=== PATIENT | male | born 1960 | race Caucasian/White ===

== ENCOUNTER 2021-06-03 16:19 | Emergency (ER) | payer OTHER ==
[2021-06-03] MEDS ORDERED: Sodium Chloride 0.9% 100 ML ONE (16:58)
[2021-06-03] MEDS ORDERED: Cefepime 2 GM VIAL ONE (16:58)
[2021-06-03 17:00] LABS: #Basophils 0.1 thou/uL (0.0-0.2); #Eosinphils 0.2 thou/uL (0.0-0.7); #Lymphocytes 2.3 thou/uL (1.20-3.40); #Monocytes 0.7 thou/uL (0.11-0.59); #Neutrophils 3.8 thou/uL (1.40-6.50); %Basophils 1.2 % (0.0-1.0); %Eosinophils 2.4 % (0.0-10.0); %Lymphocytes 32.5 % (21.0-51.0); %Neutrophils 53.9 % (42.0-75.0); Hemoglobin 13.6 g/dL (14.0-18.0); Mean Corpuscular HGB CONC 33.1 g/dL (32.0-36.0); Mean Corpuscular Hemoglobin 30.7 pg (27.0-31.0); Mean Corpuscular Volume 92.8 fL (78.0-98.0); Mean Platelet Volume 7.6 fL (7.4-10.4); Platelet Count 223 thou/uL (130-400); RBC Distribution Width 11.5 % (11.5-14.5); Red Blood Cell (RBC) Count 4.44 mill/uL (4.70-6.10)
[2021-06-03] MEDS ORDERED: Sodium Chloride 0.9% 500 ML ONE (17:01)
[2021-06-03 17:11] LABS: PTT 29.9 sec (22.9-36.1)
[2021-06-03 17:13] LABS: ALT (SGPT) 15 U/L (8-55); AST (SGOT) 14 U/L (5-34); Albumin 4.3 g/dL (3.4-4.8); Alkaline Phosphatase 56 U/L (40-110); Anion Gap 13 mmol/L (10-20); BUN (Urea Nitrogen) 11 mg/dL (8.4-25.7); Bilirubin, Total 0.7 mg/dL (0.2-1.2); Calc. Creatinine Clearance 0 mL/min (70-130); Calcium 9.5 mg/dL (7.8-10.44); Carbon Dioxide 24 mmol/L (23-31); Chloride 109 mmol/L (98-107); Globulin 3.1 g/dL (2.4-3.5); Glucose 108 mg/dL (80-115); Potassium 3.9 mmol/L (3.5-5.1); Protein, Total 7.4 g/dL (5.8-8.1); Sodium 142 mmol/L (136-145)
[2021-06-03] MEDS ORDERED: Boostrix 0.5 ML (Tdap) VIAL ONE (18:03)
== END 2021-06-03 18:20 | disposition short-term general hospital (02) ==
LOC: NAV ERS 16:19
DX: S80.812A Abrasion, left lower leg, initial encounter (principal); M79.89 Other specified soft tissue disorders; W22.8XXA Striking against or struck by other objects, initial encounter
CPT/HCPCS: 36415; 80053; 83605; 85025; 85610; 85730; 87040; 90471; 90715; 96365; 96367; J0692; J3370; J3490; J7030